=== PATIENT | male | born 1965 | race Caucasian/White ===

== ENCOUNTER 2016-10-24 13:00 | Emergency (ER) | payer OTHER ==
[~2016-10-24] VITALS: Ht 175.3 cm; Wt 86.0 kg
[~2016-10-24 13:00] MED LIST: ALLOPURINOL100 MG PO; ASPIRIN81 M1; DIOVAN80 MG PO; NITROGLYCERIN0.3 MG SL; PLAVIX75 MG; PRAVASTATIN SOD20 MG PO; TOPROL XL6.25 MG PO
[2016-10-24 13:46] LABS: HEMATOCRIT 48.1 % (38.0-50.0); MCH 30.1 PG (29.0-34.0); MCHC 35.6 G/DL (30.0-36.0); MCV 84.5 FL (86-99); MEAN PLAT.VOLUME 9.1 uM^3 (9.0-12.4); PLATELET COUNT 263 K/uL (156-360); RBC DIS.WIDTH-CV 12.6 % (11.8-14.6); RBC DIS.WIDTH-SD 38.5 % (39-53); RED BLOOD COUNT 5.69 M/uL (4.00-5.50); WHITE BLOOD COUNT 4.1 K/uL (4.1-10.2)
[2016-10-24 14:00] LABS: CHLORIDE 106 mEq/L (99-109); POTASSIUM 4.2 mEq/L (3.7-5.4); SODIUM 139 mEq/L (136-147)
[2016-10-24 14:02] LABS: GLUCOSE 112 mg/dL (70-99)
[2016-10-24 14:03] LABS: ANION GAP 8 MEQ/L (2-14)
[2016-10-24 14:05] LABS: GFR ESTIMATE (CALCULATED) > 59 mL/min/
[2016-10-24 14:06] LABS: UREA NITROGEN (BUN) 10 mg/dL (9-23)
[2016-10-24 14:12] LABS: TROP-I INTERPRETATION NEGATIVE; TROPONIN-I 0.04 ng/mL (0.0-0.30)
[2016-10-24 14:15] LABS: D-DIMER ELISA < 0.15 mg/L FEU (< 0.57)
[2016-10-24] MEDS ORDERED: LO-DOSE ASPIRIN81 M2 PO (15:10)
[2016-10-24] MEDS ORDERED: COQ-10100 MG PO (15:11)
[2016-10-24] MEDS ORDERED: VITAMIN D2000 UNI1 PO (15:11)
[2016-10-24 16:44] LABS: TROP-I INTERPRETATION NEGATIVE; TROPONIN-I 0.03 ng/mL (0.0-0.30)
[2016-10-24] MEDS ORDERED: NAPROXEN500 MG PO (16:46)
[2016-10-24 17:15] VITALS: BP 150/91
== END 2016-10-24 17:17 | disposition left against medical advice (07) ==
LOC: EME 13:00
PROVIDERS: Physician Assistant Medical
DX: R07.9 Chest pain, unspecified (principal); E78.5 Hyperlipidemia, unspecified; I10 Essential (primary) hypertension; I25.2 Old myocardial infarction; Z98.61 Coronary angioplasty status; Z79.02 Long term (current) use of antithrombotics/antiplatelets; Z79.82 Long term (current) use of aspirin; Z82.49 Family history of ischemic heart disease and other diseases of the circulatory system
CPT/HCPCS: 71020; 80048; 84484; 85027; 85379; 93005; 99281; 99284